=== PATIENT | female | born 1995 | race Caucasian/White ===

== ENCOUNTER 2022-08-21 19:33 | Emergency (ER) | payer OTHER ==
[2022-08-21 20:00] VITALS: BP 134/80; PULSE 80; RESP 18; TEMP 98.2
[2022-08-21] MEDS ORDERED: predniSONE 50 MG TAB PO STA (20:33)
[2022-08-21] MEDS ORDERED: ACETAMINOPHEN TAB 500 MG TAB PO STA (20:33)
[2022-08-21] MEDS ORDERED: BENZOCAINE/MENTHOL LOZENG 1 EACH LOZENGE MUCOUS MEM STA (20:34)
--- NOTE | 2022-08-21 22:10 | XR ---
EXAMINATION TYPE: XR chest 2V DATE OF EXAM: 08/21/2022 9:21 PM COMPARISON: None TECHNIQUE: XR chest 2V Frontal and lateral views of the chest. CLINICAL INDICATION:Female, 27 years old with history of cough; FINDINGS: Lungs/Pleura: There is no evidence of pleural effusion, focal consolidation, or pneumothorax. Pulmonary vascularity: Unremarkable. Heart/mediastinum: Cardiomediastinal silhouette is unremarkable. Musculoskeletal: No acute osseous pathology. IMPRESSION: No acute cardiopulmonary disease/process.
[2022-08-21] MEDS ORDERED: PENICILLIN V POTASSIUM 250 MG TAB PO STA (22:48)
[2022-08-21] MEDS ORDERED: AZITHROMYCIN 500 MG TAB PO STA (22:56)
--- NOTE | 2022-08-21 22:58 | ED ---
URI HPI - General Chief Complaint: Upper Respiratory Infection Stated Complaint: Bronchitis Time Seen by Provider: 08/21/22 20:15 Source: patient Mode of arrival: ambulatory Limitations: no limitations - History of Present Illness Initial Comments: Patient is a 19-year-old female who presents to the emergency department with a chief complaint of sore throat. Patient states her throat has been hurting for over a week. She also reports productive cough and headache. States she recently finished a 10 day prescription of amoxicillin on 08/18. She denies fever, chills, chest pain, shortness of breath. 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 - Related Data Previous Rx's Medication Instructions Recorded Azithromycin [Zithromax Z Pack] 1 tab PO DIRECTED #6 tab 08/21/22 Ibuprofen [Motrin] 800 mg PO Q6HR PRN #30 tab 08/21/22 Allergies Allergy/AdvReac Type Severity Reaction Status Date / Time No Known Allergies Allergy Verified 08/21/22 20:00 Review of Systems ROS Statement: Those systems with pertinent positive or pertinent negative responses have been documented in the HPI. ROS Other: All systems not noted in ROS Statement are negative. Past Medical History Additional Past Medical History / Comment(s): Hep C History of Any Multi-Drug Resistant Organisms: None Reported Past Surgical History: No Surgical Hx Reported Past Psychological History: No Psychological Hx Reported Smoking Status: Current every day smoker Past Alcohol Use History: None Reported Past Drug Use History: Heroin General Exam Limitations: no limitations General appearance: alert Head exam: Present: atraumatic, normocephalic, normal inspection Eye exam: Present: normal appearance, PERRL, EOMI. Absent: scleral icterus, conjunctival injection, periorbital swelling ENT exam: Absent: normal oropharynx (erythematous tonsils with mild swelling. no exudate) Neck exam: Present: normal inspection. Absent: meningismus Respiratory exam: Present: normal lung sounds bilaterally. Absent: respiratory distress, wheezes, rales, rhonchi, stridor Cardiovascular Exam: Present: regular rate, normal rhythm, normal heart sounds. Absent: systolic murmur, diastolic murmur, rubs, gallop, clicks Neurological exam: Present: alert, oriented X3, CN II-XII intact Psychiatric exam: Present: normal affect, normal mood Skin exam: Present: warm, dry, intact, normal color. Absent: rash Course Vital Signs 08/21/22 19:58 Temperature 98.2 F Pulse Rate 80 Respiratory 18 Rate Blood Pressure 134/80 O2 Sat by Pulse 97 Oximetry Medical Decision Making - Medical Decision Making This is a 27-year-old female presenting with sore throat. Afebrile. Strep throat is detected. Influenza and COVID-19 are negative. Chest x-ray negative for acute process. With patient recently finishing amoxicillin course, I will attempt a different classification of antibiotics for streptococcus pharnygitis. Azithromycin given in the emergency department. Patient will be discharged with Z-Sukhdeep and Motrin. Symptomatic treatment discussed. Dr. Davidson is my attending. - Lab Data Lab Results 08/21/22 08/21/22 08/21/22 Range/Units 20:30 20:30 21:23 Coronavirus (PCR) Not Detected (Not Detectd) Influenza Type A RNA Not Detected (Not Detectd) Influenza Type B (PCR) Not Detected (Not Detectd) Group A Strep (PCR) DETECTED A (Not Detectd) Disposition Clinical Impression: Strep throat, Cough Disposition: HOME SELF-CARE Condition: Good Instructions (If sedation given, give patient instructions): Strep Throat (ED) Additional Instructions: Take medication as directed. Use of salt water gargles may help throat pain. Follow-up with primary care provider in one to 2 days. Return to the emergency department if you experience new, concerning, or worsening symptoms. Prescriptions: Ibuprofen [Motrin] 800 mg PO Q6HR PRN #30 tab PRN Reason: Pain Azithromycin [Zithromax Z Pack] 1 tab PO DIRECTED #6 tab Is patient prescribed a controlled substance at d/c from ED?: No Referrals: None,Stated [Primary Care Provider] - 1-2 days
== END 2022-08-21 23:21 | disposition home or self-care (01) ==
LOC: EC 19:33
DX: J02.0 Streptococcal pharyngitis (principal); R05.9 Cough, unspecified; F17.200 Nicotine dependence, unspecified, uncomplicated; Z20.822 Contact with and (suspected) exposure to COVID-19
CPT/HCPCS: 87651; 87502; 87635; 71046; 99283; J7512; 99284